=== PATIENT | male | born 1975 | race Caucasian/White ===

== ENCOUNTER 2018-01-25 23:07 | Emergency (ER) | payer OTHER ==
--- NOTE | 2018-01-26 00:37 | EDPHYS ---
Physician Documentation [facility] Name: Raymond Brooks Age: 42 yrs Sex: Male : 1975 Arrival Date: 01/25/2018 Time: 23:11 Bed 17 Private MD: ED Physician Stevie Ross HPI: 01/26 00:37 This 42 yrs old Male presents to ER via EMS with complaints of Foot Injury. jr8 00:37 The patient presents with pain, tenderness. The complaints affect the dorsum of left jr8 foot. Context: The problem was sustained outdoors. Onset: The symptoms/episode began/occurred acutely, today. Modifying factors: The symptoms are alleviated by nothing. the symptoms are aggravated by movement, weight bearing. Associated signs and symptoms: The patient has no apparent associated signs or symptoms. Severity of symptoms: At their worst the symptoms were mild, in the emergency department the symptoms are unchanged. The patient has not experienced similar symptoms in the past. The patient has not recently seen a physician. Stated that while walking outside hit sidewalk that was elevated with left foot causing him to almost fall. Pain to left foot since incident . Historical: - Allergies: 01/25 23:25 No Known Allergies; ea - Home Meds: 23:25 atenolol 100 mg Oral tab 1 tab once daily [Active]; ea - PMHx: 23:25 Anxiety; Depression; Hypertension; ea - PSHx: 23:25 None; ea - Immunization history:: Adult Immunizations up to date. - Social history:: Smoking status: Patient uses tobacco products, smokes two packs cigarettes per day. - Ebola Screening: : No symptoms or risks identified at this time. ROS: 01/26 00:37 Eyes: Negative for injury, pain, redness, and discharge, ENT: Negative for injury, jr8 pain, and discharge, Neck: Negative for injury, pain, and swelling, Cardiovascular: Negative for chest pain, palpitations, and edema, Respiratory: Negative for shortness of breath, cough, wheezing, and pleuritic chest pain, Abdomen/GI: Negative for abdominal pain, nausea, vomiting, diarrhea, and constipation, Back: Negative for injury and pain, Skin: Negative for injury, rash, and discoloration, Neuro: Negative for headache, weakness, numbness, tingling, and seizure. MS/extremity: Positive for pain, tenderness, of the dorsum of left foot. Exam: 00:37 Constitutional: This is a well developed, well nourished patient who is awake, alert, jr8 and in no acute distress. Cardiovascular: Regular rate and rhythm with a normal S1 and S2. No gallops, murmurs, or rubs. Normal PMI, no JVD. No pulse deficits. Respiratory: Lungs have equal breath sounds bilaterally, clear to auscultation and percussion. No rales, rhonchi or wheezes noted. No increased work of breathing, no retractions or nasal flaring. Skin: Warm, dry with normal turgor. Normal color with no rashes, no lesions, and no evidence of cellulitis. Neuro: Awake and alert, GCS 15, oriented to person, place, time, and situation. Cranial nerves II-XII grossly intact. Motor strength 5/5 in all extremities. Sensory grossly intact. Cerebellar exam normal. Normal gait. 00:37 Musculoskeletal/extremity: Extremities: grossly normal except: noted in the dorsum of left foot: pain, tenderness, ROM: intact in all extremities, Circulation is intact in all extremities. Sensation intact. Vital Signs: 01/25 23:10 BP 146 / 116; Pulse 114; Resp 20; Temp 98.6; Pulse Ox 98% on R/A; Weight 97.52 kg; ea Height 5 ft. 9 in. (175.26 cm); Pain 10/10; 01/26 00:20 BP 114 / 112; Pulse 106; Resp 18; Pulse Ox 99% on R/A; ea 01:00 BP 118 / 100; Pulse 90; Resp 18; Temp 98(O); Pulse Ox 99% on R/A; Pain 5/10; ea 01/25 23:10 Body Mass Index 31.75 (97.52 kg, 175.26 cm) ea MDM: 01/25 23:48 Patient medically screened. jr8 01/26 00:37 Data reviewed: vital signs, nurses notes, radiologic studies, plain films, and as a jr8 result, I will discharge patient. Data interpreted: Pulse oximetry: on room air is 99 %. Interpretation: normal. Counseling: I had a detailed discussion with the patient and/or guardian regarding: the historical points, exam findings, and any diagnostic results supporting the discharge/admit diagnosis, radiology results, the need for outpatient follow up, a family practitioner, to return to the emergency department if symptoms worsen or persist or if there are any questions or concerns that arise at home. 01/25 23:48 Order name: XRAY Foot LEFT 3 View jr8 Administered Medications: No medications were administered Disposition: 20:32 Co-signature as Attending Physician, Stevie Ross MD I agree with the assessment and il plan of care. Disposition: 01/26/18 00:37 Discharged to Home. Impression: Contusion of left foot. - Condition is Stable. - Discharge Instructions: Foot Contusion. - Prescriptions for Ibuprofen 800 mg Oral Tablet - take 1 tablet by ORAL route every 12 hours As needed take with food; 20 tablet. Lisinopril- Hydrochlorothiazide 20-12.5 mg Oral Tablet - take 1 tablet by ORAL route once daily; 20 tablet. - Medication Reconciliation Form, Thank You Letter, Antibiotic Education, Prescription Opioid Use form. - Follow up: Private Physician; When: 1 week; Reason: Recheck today's complaints, Continuance of care, Re-evaluation by your physician. - Problem is new. - Symptoms have improved. Signatures: Dispatcher [employer] EDMS Manuel Dillon PA PA jr8 Alba Umanzor RN RN ea Appiah, William, MD MD wa Corrections: (The following items were deleted from the chart) 01:32 00:37 01/26/2018 00:37 Discharged to Home. Impression: Contusion of left foot. ea Condition is Stable. Forms are Medication Reconciliation Form, Thank You Letter, Antibiotic Education, Prescription Opioid Use. Follow up: Private Physician; When: 1 week; Reason: Recheck today's complaints, Continuance of care, Re-evaluation by your physician. Problem is new. Symptoms have improved. jr8
--- NOTE | 2018-01-26 00:37 | ER ---
Nurse's Notes [facility] Name: Raymond Brooks Age: 42 yrs Sex: Male : 1975 Arrival Date: 01/25/2018 Time: 23:11 Bed 17 Private MD: Diagnosis: Contusion of left foot Presentation: 01/25 23:05 Presenting complaint: EMS states: Pt was walking, tripped and twisted his left ankle. ea EMS reports patient is A and O x 3 no swelling, deformity or bruising noted to left ankle. Transition of care: patient was not received from another setting of care. Onset of symptoms was January 25, 2018. Risk Assessment: Do you want to hurt yourself or someone else? Patient reports no desire to harm self or others. Initial Sepsis Screen: Does the patient meet any 2 criteria? HR > 90 bpm. Yes Does the patient have a suspected source of infection? No. Patient's initial sepsis screen is negative. Care prior to arrival: None. 23:05 Method Of Arrival: EMS: [facility] ea 23:05 Acuity: MARCE 5 ea Triage Assessment: 23:10 General: Appears in no apparent distress. Behavior is calm, cooperative, appropriate ea for age. Pain: Complains of pain in left foot Pain does not radiate. Pain currently is 10 out of 10 on a pain scale. Quality of pain is described as aching, Pain began 1 hour ago. Is continuous. EENT: No signs and/or symptoms were reported regarding the EENT system. Neuro: Level of Consciousness is awake, alert, obeys commands, Oriented to person, place, time, situation. Cardiovascular: Patient's skin is warm and dry. Respiratory: Airway is patent Respiratory effort is even, unlabored, Respiratory pattern is regular, symmetrical. GI: No signs and/or symptoms were reported involving the gastrointestinal system. : No signs and/or symptoms were reported regarding the genitourinary system. Derm: No signs and/or symptoms reported regarding the dermatologic system. Bruising that is dark purple, on dorsum of left foot swelling. Musculoskeletal: Circulation, motion, and sensation intact. Swelling present in dorsum of left foot. Injury Description: Bruise sustained to dorsum of left foot. Historical: - Allergies: 23:25 No Known Allergies; ea - Home Meds: 23:25 atenolol 100 mg Oral tab 1 tab once daily [Active]; ea - PMHx: 23:25 Anxiety; Depression; Hypertension; ea - PSHx: 23:25 None; ea - Immunization history:: Adult Immunizations up to date. - Social history:: Smoking status: Patient uses tobacco products, smokes two packs cigarettes per day. - Ebola Screening: : No symptoms or risks identified at this time. Screenin:28 Abuse screen: Denies threats or abuse. Nutritional screening: No deficits noted. ea Nutritional screening: No deficits noted. Tuberculosis screening: No symptoms or risk factors identified. Fall Risk Fall in past 12 months (25 points). Assessment: 01/26 00:03 Reassessment: Patient and/or family updated on plan of care and expected duration. Pain ea level reassessed. Patient is alert, oriented x 3, equal unlabored respirations, skin warm/dry/pink. 01:05 Reassessment: Patient and/or family updated on plan of care and expected duration. Pain ea level reassessed. Patient is alert, oriented x 3, equal unlabored respirations, skin warm/dry/pink. Discharge instructions given to patient, verbalized the understanding of instruction. Pt reports he is calling someone for ride. Vital Signs: 01/25 23:10 BP 146 / 116; Pulse 114; Resp 20; Temp 98.6; Pulse Ox 98% on R/A; Weight 97.52 kg; ea Height 5 ft. 9 in. (175.26 cm); Pain 10/10; 01/26 00:20 BP 114 / 112; Pulse 106; Resp 18; Pulse Ox 99% on R/A; ea 01:00 BP 118 / 100; Pulse 90; Resp 18; Temp 98(O); Pulse Ox 99% on R/A; Pain 5/10; ea 01/25 23:10 Body Mass Index 31.75 (97.52 kg, 175.26 cm) ea ED Course: 01/25 23:05 Patient has correct armband on for positive identification. Bed in low position. Call ea light in reach. Side rails up X 1. 23:10 Arm band placed on right wrist. Patient placed in an exam room, on a stretcher, on ea pulse oximetry. 23:11 Patient arrived in ED. ea 23:18 Alba Umanzor, RN is Primary Nurse. ea 23:21 Triage completed. ea 23:31 Manuel Dillon PA is PHCP. jr8 23:31 Stevie Ross MD is Attending Physician. jr8 01/26 00:04 X-ray completed. Portable x-ray completed in exam room. Patient tolerated procedure kw well. 00:07 XRAY Foot LEFT 3 View In Process Unspecified. EDMS 01:06 No provider procedures requiring assistance completed. Patient did not have IV access ea during this emergency room visit. Administered Medications: No medications were administered Outcome: 00:37 Discharge ordered by . jr8 01:06 Condition: good ea 01:06 Discharge instructions given to patient, Instructed on discharge instructions, follow up and referral plans. medication usage, Demonstrated understanding of instructions, follow-up care, medications, Prescriptions given X 1. 01:29 Discharged to [facility] awaiting on ride. ea 01:32 Patient left the ED. ea Signatures: Dispatcher [employer] EDMS Taryn Jackson Manuel Dillon PA PA jr8 Alba Umanzor RN RN ea Corrections: (The following items were deleted from the chart) 01:32 01:05 Reassessment: Patient and/or family updated on plan of care and expected ea duration. Pain level reassessed. Patient is alert, oriented x 3, equal unlabored respirations, skin warm/dry/pink. Discharge instructions given to patient, verbalized the understanding of instruction. ea
--- NOTE | 2018-01-26 08:48 | RAD REPORT ---
EXAM DESCRIPTION: RAD - Foot Left 3 View - 01/26/2018 12:05 am CLINICAL HISTORY: PAIN COMPARISON: No comparisons FINDINGS: Mild metatarsus primus adductus with hallux valgus. No acute fracture or subluxation is se en.
== END 2018-01-26 01:32 | disposition home or self-care (01) ==
LOC: ER 23:07
DX: S90.32XA Contusion of left foot, initial encounter (principal); I10 Essential (primary) hypertension; F17.210 Nicotine dependence, cigarettes, uncomplicated; W22.8XXA Striking against or struck by other objects, initial encounter; Y93.01 Activity, walking, marching and hiking; Y92.89 Other specified places as the place of occurrence of the external cause; Y99.9 Unspecified external cause status
CPT/HCPCS: 99284